=== PATIENT | female | born 2000 | race Caucasian/White ===

== ENCOUNTER 2024-02-15 15:08 | Emergency (ER) | payer BC, SELFPAY ==
[2024-02-15 15:08] VITALS: BP 133/102; PULSE 105; RESP 14; O2SAT 99
[2024-02-15 15:09] VITALS: BP 148/107; PULSE 104; RESP 18; TEMP 36.6; O2SAT 100; BMI 29.7
--- NOTE | 2024-02-15 15:24 | EX.ED.DYSGE1 ---
HPI History of Present Illness Chief Complaint: Abd Pain [facility] Medical History (Updated 02/15/24 @ 18:[address] Kwame Conteh, DO) PCOS (polycystic ovarian syndrome) PMDD (premenstrual dysphoric disorder) Home Medications dextroamphetamine-amphetamine ER 30 mg 24hr capsule,extend release (Adderall XR) 30 mg PO DAILY 10/25/15 [History Last Taken Unknown] fluoxetine 20 mg capsule 40 mg PO DAILY 10/25/15 [History Last Taken Unknown] NK 11/25/17 [History Last Taken Unknown] Allergy/AdvReac Type Severity Reaction Status Date / Time atomoxetine [From Strattera] Allergy Other Verified 09/13/21 13:03 methylphenidate Allergy Other Verified 09/13/21 13:03 [From Concerta] atomoxetine HCl AdvReac Nausea Verified 09/13/21 13:03 [From Strattera] Social History (System 09/13/21 @ 13:03 by Dylan Goff) Smoking Status: Never smoker EXAM Physical Exam Const Vital Signs: 02/15/24 15:09 02/15/24 15:08 02/15/24 17:34 Temperature 98 F Temperature Source Temporal Pulse Rate 104 H 105 H 98 Respiratory Rate 18 14 16 Blood Pressure 148/107 H 133/102 H 135/96 H Blood Pressure Mean 120 112 109 Pulse Ox 100 99 100 Oxygen Delivery Method Room Air Room Air Room Air [facility] Narrative Medical decision making narrative: HISTORY OF PRESENT ILLNESS: 24 year old female presents with abdominal pain. Endorses left lower quadrant abdominal pain that started last night. She endorses nausea as well but denies any vomiting. Notes pain began after intercourse yesterday was initially 10 out of 10 is now 8 out of 10. Denies history abdominal surgeries. Notes nausea but no vomiting. No fever. No chest pain. No change in urination. No vaginal bleeding or discharge. She is sexually active with 1 partner unprotected. She lacks about STDs. Last period was 3 weeks ago. REVIEW OF SYSTEMS: All other systems reviewed and are negative except as noted in the history of present illness. At least 10 review of systems reviewed and are negative except as noted in history of present illness. PHYSICAL EXAM: Nursing triage notes reviewed, Vital signs reviewed Constitutional: please see mdm HENT: MMM Eyes: Pupils equal round and reactive to light, Extraocular muscles intact Neck: No stridor, no JVD, full neck ROM Lungs: Clear to auscultation, No wheezing or rales. No increased work of breathing, no conversational dyspnea, no accessory muscle use, no nasal flaring. No respiratory distress noted Heart: Regular rate and rhythm, No murmurs, No rubs and No gallops, 2+ distal pulses (radial, femoral, posterior tibial) in all extremities Abdomen: Soft, no rigidity, rebound or guarding, no obvious peritoneal signs, no palpable pulsatile abdominal masses, no auscultated abdominal bruit : No CVAT Extremities: No edema Neuro: No focal neurological deficits, cranial nerves II through XII intact, 5/5 strength in all extremities. Intact sensation to light touch in all extremities, 2+ reflexes bilateral patella tendons. Normal gait. No ataxia. Skin: No rash or lesions noted MEDICAL DECISION MAKING: Chief Complaint: abdominal pain External records reviewed: No recent Ghosh imaging of the abdomen or pelvis Factors affecting care: Obesity, ADHD MDM Narrative: Patient was initially hemodynamically stable afebrile. Abdominal exam with left adnexal TTP, no peritoneal signs. I considered the following differential diagnosis: AAA, small bowel obstruction, abdominal perforation, appendicitis, pancreatitis, hepatobiliary pathology (acute cholecystitis), mesenteric ischemia, abnormalities such as pyelonephritis, nephrolithiasis I obtained a broad lab and imaging workup to further elucidate the etiology of his complaints. I opted to pursue an ultrasound to rule out ovarian torsion or ruptured ovarian cyst. I treat the patient 1 L normal saline and Zofran for symptomatic relief. Awaiting test to treat the patient with NSAIDs. ALL IMAGES (IF OBTAINED) HAVE BEEN PERSONALLY REVIEWED AND INTERPRETED BY MYSELF. CBC without leukocytosis, severe anemia, no thrombocytopenia. CMP without evidence of acute kidney injury, significant electrolyte abnormality, anion gap, no evidence hepatobiliary pathology. Lipase is wnl indicating no pancreatic inflammation. Urine protein test is negative Ultrasound shows evidence of a complex left cyst likely causing patient's symptoms. The synthesis of the patient's history, physical exam, labs images suggest likely ovarian cyst. There is no signs of significant anemia or evidence of ovarian torsion. No surgical process noted in the abdomen or pelvis. Patient appropriate close OB follow-up. I see nothing that would suggest an acute abdomen at this time. Based on history physical exam, risk factors, I have a low for bowel obstruction, incarcerated hernia, acute pancreatitis, intra-abdominal abscess, perforated viscus, diverticulitis, cholecystitis, appendicitis is very low. There is no evidence of peritonitis sepsis or toxicity at this time. I feel the patient can be managed as an outpatient with follow-up with her primary physician in the next 24 to 48 hours or soon as possible. Instructions have been given for the patient to return to the ED for worsening pain, anorexia, high fevers, intractable vomiting or bleeding. The patient and/or family, caregivers express understanding. The patient and/or family, caregivers agrees with the plan. Total critical care time today provided was at least 0 minutes. This excludes separately billable procedures. Critical care time (if documented) is secondary to the patient having high probability of clinically significant/life threatening deterioration in the patient's condition which required my urgent intervention. Shared decision making: I will have a discussion with the patient and or visitors regarding risk/benefits of further testing or admission. They will be made aware of of the risk/benefits inherent in this decision they will be given the opportunity to voice understanding. Impression: 1. Abdominal pain 2. Postcoital pain 3. Ovarian cyst Disposition: Discharge home Kwame Conteh DO Lab Data Labs: Laboratory Results - last 24 hr 02/15/24 02/15/24 15:40 16:34 WBC 9.1 RBC 5.31 Hgb 13.9 Hct 42.2 MCV 79.5 L MCH 26.2 L MCHC 32.9 RDW Std Deviation 35.9 RDW Coeff of Jordi 12.7 Plt Count 329 MPV 9.9 Immature Gran % (Auto) 0.300 Neut % (Auto) 64.6 Lymph % (Auto) 29.2 [place] % (Auto) 4.3 Eos % (Auto) 1.0 Baso % (Auto) 0.6 Absolute Neuts (auto) 5.9 Absolute Lymphs (auto) 2.65 Nucleated RBC % 0 Sodium 137 Potassium 3.7 Chloride 108 H Carbon Dioxide 23.0 Anion Gap 6 BUN 9 Creatinine 0.82 Estim Creat Clear Calc 118.28 Est GFR (MDRD) Af Amer 110 Est GFR (MDRD) Non-Af 91 BUN/Creatinine Ratio 11.0 Glucose 101 Calcium 9.0 Total Bilirubin 0.30 Direct Bilirubin 0.12 AST 13 L ALT 30 Alkaline Phosphatase 114 Total Protein 7.4 Albumin 4.0 Globulin 3.4 Lipase 44 Urine Color Yellow Urine Clarity Sl. Cloudy Urine pH 7.0 Ur Specific Wright 1.010 Urine Protein Negative Urine Glucose (UA) Normal Urine Ketones Negative Urine Occult Blood Negative Urine Nitrite Negative Urine Bilirubin Negative Urine Urobilinogen Normal Ur Leukocyte Esterase 25 H Urine Test Negative Radiography Diagnostic Testing: Clinical Impression(s) from Imaging Studies Transvaginal US 02/15/24 15:31 IMPRESSION: There is free fluid in the pelvis. This can be physiologic. Complex left ovarian cyst may be a hemorrhagic cyst or collapsing follicle. Electronically Signed: Philip Mueller MD at 18:00 EDT , Discharge Plan Triage Chief Complaint: Abd Pain ED Provider: Kwame Conteh Dx/Rx/DC Orders Clinical Impression: Ovarian cyst Instructions: ED Ovarian Cyst Prescriptions: No Action dextroamphetamine-amphetamine [Adderall XR] 30 MG capsule,extended release 24hr 30 mg PO DAILY fluoxetine 20 MG capsule 40 mg PO DAILY NK Primary Care Provider: Care Physician,No Primary Referrals: [facility] Doctor,Out of [Non-Staff] - Activity Restrictions/Additional Instructions: Thank you for trusting us with your care today! Please take Tylenol (2 pills, 650 mg), ibuprofen (2 pills, 400 mg) every 6 hours as needed for pain and fever control. Please return to the emergency department if your symptoms change or worsen. Please follow with your OBGYN for further outpatient evaluation and management. Disposition Disposition: Home, Self Care
--- NOTE | 2024-02-15 15:31 | US_ITS ---
STUDY: ULTRASOUND OF THE FEMALE PELVIS - COMPLETE REASON FOR EXAM: Female, 24 years old. left sided pelvic pain TECHNIQUE: Transvaginal and transabdominal imaging. COMPARISON: None. FINDINGS: The uterus is anteverted and is in a midline position. The uterus measures 8.4 cm. Normal uterine cervix. The endometrium measures 9.5 mm in thickness, and is hyperechoic. There is no demonstrated endometrial mass. There is no demonstrated myometrial mass. I.U.D. - The patient does not have an I.U.D. The right ovary is visualized. The right ovary measures 3.2 cm. There is no right ovarian cyst or ovarian mass. There is no visualized right adnexal mass or complex lesion. There is normal arterial and normal venous vascularity. The left ovary is visualized. The left ovary measures 4.4 cm. 30 mm cyst. This is septated. There is no visualized left adnexal mass or complex lesion. There is normal arterial and normal venous vascularity. There is minimal fluid in the cul-de-sac. Unremarkable urinary bladder. US/Transvaginal Non- IMPRESSION: There is free fluid in the pelvis. This can be physiologic. Complex left ovarian cyst may be a hemorrhagic cyst or collapsing follicle. Electronically Signed: Philip Mueller MD at 18:00 EDT ,
[2024-02-15 15:50] LABS: Absolute Lymphocyte Count 2.65 X10^3/uL (0.83-4.51); Absolute Neutrophil Count 5.9 X10^3/uL (2.0-7.7); Basophil# 0.05 X10^3/uL; Basophil% 0.6 % (0-1); Eosinophil# 0.09 X10^3/uL; Hematocrit 42.2 % (37-47); Hemoglobin 13.9 g/dL (12.0-15.0); Lymphocyte # 2.65 X10^3/ul (0.83-4.51); Lymphocyte % 29.2 % (19-41); Mean Corp Hgb Conc 32.9 g/dL (32-36); Mean Corpuscular Hgb 26.2 pg (27.0-32.0); Mean Corpuscular Volume 79.5 fL (81-99); Mean Platelet Vol. 9.9 fl (6.2-12.0); Monocyte# 0.39 X10^3/uL; Monocyte% 4.3 % (0-10); NRBC Flagged by Analyzer 0 % (0-5); Neutrophil # 5.85 X10^3/uL (2.7-7.7); Neutrophil % 64.6 % (47-70); Platelet Count 329 K/mm3 (150-450); RBC Distribution Width CV 12.7 % (11.6-14.6); RBC Distribution Width SD 35.9 fl (35.1-43.9); Red Blood Count 5.31 M/mm3 (4.2-5.4); White Blood Count 9.1 K/mm3 (4.4-11.0)
[2024-02-15 16:07] LABS: AST(SGOT) 13 U/L (15-37); Alanine Aminotransfer ALT/SGPT 30 U/L (13-56); Alkaline Phosphatase 114 U/L (45-117); Anion Gap 6 (5-15); BUN 9 mg/dL (7-18); Bilirubin, Direct 0.12 mg/dL (0.00-0.30); Chloride 108 mmol/L (98-107); Creatinine, Serum 0.82 mg/dL (0.55-1.02); EST Glomerular Filtration Rate 91 mL/min (>60); Est Glom Filt Rate - Afr Amer 110 mL/min (>60); Estimated Creatinine Clearance 118.28 ml/min; Globulin 3.4 g/dL (2.2-4.2); Glucose 101 mg/dL (74-106); Lipase 44 U/L (13-75); Potassium 3.7 mmol/L (3.5-5.1); Protein, Total 7.4 g/dL (6.4-8.2); Sodium Level 137 mmol/L (136-145)
[2024-02-15] MEDS: Ondansetron 4 MG/2 ML Vial IV (16:10)
[2024-02-15] MEDS: 0.9% Normal Saline (1000mL) 1,000 ML 1000 ML IV (16:10)
[2024-02-15 16:43] LABS: Color, Urine Yellow (Yellow); Glucose, Dipstick Normal (Normal); Ketone-Dipstick Negative (Negative); Leukocyte Esterase-Dipstick 25 /ul (Negative); Nitrite-Dipstick Negative (Negative); Occult Blood-Urine Negative /ul (Negative); Protein-Dipstick Negative (Negative); Urine Bilirubin Dipstick Negative (Negative); Urine Clarity Sl. Cloudy (Clear); Urine Urobilinogen Normal (Normal)
[2024-02-15 16:58] LABS: Internal QC Validated? YES +Cl - CLEAR BKGD; Pregnancy, Urine Negative Negative
[2024-02-15 17:34] VITALS: BP 135/96; PULSE 98; RESP 16; O2SAT 100
[2024-02-15 18:22] VITALS: BP 130/97; PULSE 98; RESP 16; TEMP 36.8; O2SAT 100
== END 2024-02-15 18:24 | disposition home or self-care (01) ==
PROVIDERS: Emergency Provider Emergency Medicine; Visit Provider Emergency Medicine
DX: N83.202 Unspecified ovarian cyst, left side (principal); F90.9 Attention-deficit hyperactivity disorder, unspecified type
CPT/HCPCS: 76830; 80048; 80076; 81002; 81025; 83690; 85025; 96361; 96374; 99283; J7030; A4216; J2405